=== PATIENT | female | born 1985 | race American Indian/Alaskan Native ===

== ENCOUNTER 2018-09-27 17:07 | Emergency (ER) | payer MEDICAID, OTHER ==
[2018-09-27 17:19] VITALS: BP 102/64; PULSE 86; RESP 16; TEMP 98; O2SAT 100
--- NOTE | 2018-09-27 18:38 | RAD ---
Date of service: 09/27/2018 PROCEDURE: Radiographs of the Lumbar Spine. Three views. HISTORY: pain COMPARISON: None available. FINDINGS: BONES: Alignment appears satisfactory. No listhesis. No acute displaced fracture identified. DISC SPACES: Unremarkable. OTHER FINDINGS: None. IMPRESSION: No acute displaced fracture or subluxation identified.
--- NOTE | 2018-09-27 18:41 | C.PDOC ---
History Of Present Illness 33 y/o female presents to the ER complaining of low back pain and left knee pain which has been present for the past 2 days. 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 She is lifting and bending and she has to stand on her feet for long periods of time. She states that she did not have time to seek medical attention until now. Denies having neurological deficits, urinary retention, and bowel/bladder incontinence. Time Seen by Provider: 09/27/18 17:27 Chief Complaint (Nursing): Lower Extremity Problem/Injury History Per: Patient History/Exam Limitations: no limitations Onset/Duration Of Symptoms: Days Current Symptoms Are (Timing): Still Present Severity: Moderate Past Medical History Reviewed: Historical Data, Nursing Documentation, Vital Signs Vital Signs: Last Vital Signs Temp 98 F 09/27/18 17:16 Pulse 86 09/27/18 17:16 Resp 16 09/27/18 17:16 BP 102/64 09/27/18 17:16 Pulse Ox 100 09/27/18 17:16 - Medical History PMH: Anxiety, Sexually Transmitted Disease (HERPES) Denies: Chronic Kidney Disease Other Surgeries: Hx of surgeries Family History: States: No Known Family Hx - Social History Hx Alcohol Use: No Hx Substance Use: No - Immunization History Hx Influenza Vaccination: No Review Of Systems Except As Marked, All Systems Reviewed And Found Negative. Genitourinary: Negative for: Dysuria, Frequency, Hematuria Musculoskeletal: Positive for: Back Pain, Other (left knee pain) Physical Exam - Physical Exam Appears: Non-toxic, No Acute Distress Skin: Normal Color, Warm, Dry, Other (no erythema and no warmth to left knee) Head: Atraumatic, Normacephalic Eye(s): bilateral: Normal Inspection Nose: Normal Oral Mucosa: Moist Neck: Supple Chest: Symmetrical Back: No Vertebral Tenderness Extremity: Normal ROM, Tenderness (mild tenderness in medial aspect of left knee), No Swelling Neurological/Psych: Oriented x3, Normal Speech, Normal Motor, Normal Sensation ED Course And Treatment Interpretation Of ECG: [id number] Spine and X-Ray-Left Knee ordered. O2 Sat by Pulse Oximetry: 100 (RA) Pulse Ox Interpretation: Normal - Other Rad X-Ray-Knee X-Ray: Viewed By Me, Read By Radiologist Interpretation: PROCEDURE: Left Knee Radiographs. Three views. HISTORY: pain. COMPARISON: None available. FINDINGS: Mildly rotated lateral view. BONES: No acute displaced fracture. JOINTS: No dislocation. JOINT EFFUSION: Probable small suprapatellar joint effusion. OTHER FINDINGS: None. IMPRESSION: Probable small suprapatellar joint effusion. No acute displaced fracture or dislocation identified. If symptoms persist, or if there is continued clinical concern, x-ray follow-up in 7-10 days should be considered. D-Clr-Betefy Spine X-Ray: Viewed By Me, Read By Radiologist Interpretation: Date of service: 09/27/2018. PROCEDURE: Radiographs of the Lumbar Spine. Three views. HISTORY: pain. COMPARISON: None available. FINDINGS: BONES: Alignment appears satisfactory. No listhesis. No acute displaced fracture identified. DISC SPACES: Unremarkable. OTHER FINDINGS: None. IMPRESSION: No acute displaced fracture or subluxation identified. Progress Note: Knee brace was appkied by CP. Patient was d/c home with PMD/ortho follow up. Disposition - Disposition Referrals: David Plascencia MD [Staff Provider] - Disposition: HOME/ ROUTINE Disposition Time: 18:39 Condition: STABLE Additional Instructions: Follow up with PMD and Orthopedist within 1-2 days. Return to ED if feel worse. Prescriptions: Cyclobenzaprine [Cyclobenzaprine HCl] 10 mg PO TID #15 tab Lidocaine 5% [Lidoderm] 1 patch TP DAILY #30 patch Ibuprofen [Motrin Tab] 400 mg PO Q8 #30 tab Instructions: Low Back Pain in Adults, Knee Pain Forms: [facility] (Indonesian), Work Excuse - Clinical Impression Clinical Impression: Knee pain, Low back pain - PA / WET TRIMMER / Resident Statement MD/DO has reviewed & agrees with the documentation as recorded. - Scribe Statement The provider has reviewed the documentation as recorded by the Ariella Lowe Provider Attestation All medical record entries made by the Marquezibanup were at my direction and personally dictated by me. I have reviewed the chart and agree that the record accurately reflects my personal performance of the history, physical exam, medical decision making, and the department course for this patient. I have also personally directed, reviewed, and agree with the discharge instructions and disposition.
== END 2018-09-27 19:01 | disposition home or self-care (01) ==
LOC: C.ER 17:07
DX: M25.562 Pain in left knee (principal); M54.5 Low back pain

== ENCOUNTER 2018-10-19 17:06 | Observation (INO) | payer OTHER ==
[2018-10-19] MEDS ORDERED: Sodium Chloride 0.9% 1,000 ML IV ONE (19:14)
[2018-10-19 19:16] LABS: MEAN PLATELET VOLUME 7.7 fL (7.2-11.7)
[2018-10-19 19:23] LABS: INR 1.1; PARTIAL THROMBOPLASTIN TIME 34.2 SECONDS (21-34); PROTHROMBIN TIME 12.3 SECONDS (9.7-12.2)
[2018-10-19] MEDS ORDERED: Sodium Chloride 0.9% 1,000 ML ONE (19:24)
[2018-10-19 19:31] LABS: ALB/GLOB RATIO 1.2 (1.0-2.1); ALBUMIN 4.2 g/dL (3.5-5.0); ALT/SGPT 36 U/L (9-52); AST/SGOT 36 U/L (14-36); BLOOD UREA NITROGEN 9 mg/dL (7-17); CALCIUM 9.3 mg/dl (8.6-10.4); GFR NON-AFRICAN AMERICAN > 60
[2018-10-19 19:52] LABS: HEMOGLOBIN 7.2 g/dL (11.0-16.0); MEAN CELL VOLUME 64.2 fL (81.0-99.0); MEAN CORPUSCULAR HEMOGLOBIN 18.2 pg (27.0-31.0); MEAN CORPUSCULAR HGB CONC 28.4 g/dL (33.0-37.0); PLATELET COUNT 638 K/uL (130-400); RBC 3.92 Mil/uL (3.80-5.20); RED CELL DISTRIBUTION WIDTH 23.5 % (11.5-14.5)
[2018-10-19 19:59] LABS: HCG,QUALITATIVE URINE NEGATIVE (NEGATIVE)
--- NOTE | 2018-10-19 20:00 | C.PDOC ---
History Of Present Illness 33 year old female saw her OXIDATION OPERATOR Dr. Tiffany Billings a few days ago for progressively worsening dizziness and fatigue. She had blood work done patient at [facility] and today received a call to come in for a transfusion because her hemoglobin was very low. Patient has Hx of heavy periods, she states they last 6 days, first 3 days are usually very heavy but she has never been evaluated for this in the past and has never been transfused. Denies other symptoms, abdominal pain, chest pain, or SOB. Time Seen by Provider: 10/19/18 19:08 Chief Complaint (Nursing): Medical Clearance History Per: Patient History/Exam Limitations: no limitations Onset/Duration Of Symptoms: Days Current Symptoms Are (Timing): Still Present Recent travel outside of the [place]: No Past Medical History Reviewed: Historical Data, Nursing Documentation, Vital Signs Vital Signs: Last Vital Signs Temp 98.8 F 10/19/18 17:10 Pulse 76 10/19/18 17:10 Resp 18 10/19/18 17:10 BP 97/59 L 10/19/18 17:10 Pulse Ox 100 10/19/18 17:10 Primary Care Provider: Tiffany Billings - Medical History PMH: Anxiety, Sexually Transmitted Disease (HERPES) Denies: Chronic Kidney Disease Family History: States: Unknown Family Hx - Social History Hx Alcohol Use: No Hx Substance Use: No - Immunization History Hx Tetanus Toxoid Vaccination: No Hx Influenza Vaccination: No Hx Pneumococcal Vaccination: No Review Of Systems Constitutional: Positive for: Other (Fatigue). Negative for: Fever, Chills Cardiovascular: Negative for: Chest Pain, Palpitations Respiratory: Negative for: Cough, Shortness of Breath Gastrointestinal: Negative for: Nausea, Vomiting Neurological: Positive for: Dizziness. Negative for: Weakness, Numbness Physical Exam - Physical Exam Appears: Non-toxic Skin: Normal Color, Warm Head: Atraumatic, Normacephalic Eye(s): bilateral: Normal Inspection, PERRL, EOMI Oral Mucosa: Moist Neck: Normal, Supple Chest: Symmetrical, No Tenderness Cardiovascular: Rhythm Regular Respiratory: Normal Breath Sounds, No Rales, No Rhonchi, No Wheezing Gastrointestinal/Abdominal: Soft, No Tenderness Neurological/Psych: Oriented x3, Normal Speech ED Course And Treatment - Laboratory Results Result Diagrams: 10/19/18 19:12 10/19/18 19:12 Lab Results: PT 12.3 SECONDS (9.7-12.2) H 10/19/18 19:12 INR 1.1 10/19/18 19:12 APTT 34.2 SECONDS (21-34) H 10/19/18 19:12 Lab Interpretation: Abnormal (Hgb 7.2 Hct 25.2, plt 638, glucose 60) O2 Sat by Pulse Oximetry: 100 (Room air) Pulse Ox Interpretation: Normal Progress Note: Blood work and UA ordered. IV fluids administered. Orthostatic vitals unremarkable. - Physician Consult Information Time Consulting Physician Contacted: 20:28 Physician Contacted: Jayden Bailey Outcome Of Conversation: Patient to be admitted for transfusion. Disposition - Disposition Disposition: HOSPITALIZED Disposition Time: 20:30 Condition: STABLE - POA Present On Arrival: None - Clinical Impression Clinical Impression: Symptomatic anemia - Scribe Statement The provider has reviewed the documentation as recorded by the Scribe Jeet Mckeon All medical record entries made by the Scribe were at my direction and personally dictated by me. I have reviewed the chart and agree that the record accurately reflects my personal performance of the history, physical exam, medical decision making, and the department course for this patient. I have also personally directed, reviewed, and agree with the discharge instructions and disposition.
[2018-10-19 20:02] LABS: SQUAMOUS EPITHIAL 2 /hpf (0-5); URINE BACTERIA RARE (<OCC); URINE BILIRUBIN NEGATIVE (NEGATIVE); URINE BLOOD NEGATIVE (NEGATIVE); URINE CLARITY Clear (Clear); URINE COLOR Yellow (YELLOW); URINE GLUCOSE (UA) NORMAL (Normal); URINE LEUKOCYTE ESTERASE NEG Leu/uL (Negative); URINE PROTEIN NEGATIVE (NEGATIVE); URINE UROBILINOGEN NORMAL mg/dL (0.2-1.0)
--- NOTE | 2018-10-19 20:37 | CP.PCM.HP ---
History of Present Illness - History of Present Illness History of Present Illness: 33 year old female saw her C JAVA DEVELOPER Dr. Tiffany Billings a few days ago for progressively worsening dizziness and fatigue. She had blood work done patient at [facility] and today received a call to come in for a transfusion because her hemoglobin was very low. Patient has Hx of heavy periods, she states they last 6 days, first 3 days are usually very heavy but she has never been evaluated for this in the past and has never been transfused. Present on Admission - Present on Admission Any Indicators Present on Admission: No Review of Systems - Constitutional Constitutional: Anorexia, Lethargy, Malaise Past Patient History - Past Social History Smoking Status: Never Smoked - CARDIAC Hx Cardiac Disorders: No - PULMONARY Hx Respiratory Disorders: No - NEUROLOGICAL Hx Neurological Disorder: No - HEENT Hx HEENT Problems: Yes Other/Comment: ORAL HERPES - RENAL Hx Chronic Kidney Disease: No - ENDOCRINE/METABOLIC Hx Endocrine Disorders: No - HEMATOLOGICAL/ONCOLOGICAL Hx Blood Disorders: No - INTEGUMENTARY Hx Dermatological Problems: No - MUSCULOSKELETAL/RHEUMATOLOGICAL Hx Musculoskeletal Disorders: No - GASTROINTESTINAL Hx Gastrointestinal Disorders: Yes Hx Hemorrhoids: Yes - GENITOURINARY/GYNECOLOGICAL Hx Sexually Transmitted Disorders: Yes (HERPES) - PSYCHIATRIC Hx Anxiety: Yes Hx Substance Use: No - SURGICAL HISTORY Hx Surgeries: Yes Other/Comment: HEMMORHOIDECTOMY 2004 - ANESTHESIA Hx Anesthesia: Yes Hx Anesthesia Reactions: No Meds Allergies/Adverse Reactions: Allergies Allergy/AdvReac Type Severity Reaction Status Date / Time Penicillins Allergy RASH Verified 10/19/18 17:14 Physical Exam - Eye Exam Eye Exam: Normal appearance - ENT Exam ENT Exam: Mucous Membranes Moist, Normal Exam - Neck Exam Neck exam: Positive for: Normal Inspection - Cardiovascular Exam Cardiovascular Exam: REGULAR RHYTHM - GI/Abdominal Exam GI & Abdominal Exam: Normal Bowel Sounds, Soft. absent: Tenderness - Rectal Exam Rectal Exam: Deferred, NORMAL INSPECTION - Extremities Exam Extremities exam: Positive for: normal inspection - Back Exam Back exam: NORMAL INSPECTION - Neurological Exam Neurological exam: Alert, CN II-XII Intact, Normal Gait, Oriented x3, Reflexes Normal Results - Vital Signs Recent Vital Signs: Last Vital Signs Temp 98.8 F 10/19/18 20:09 Pulse 70 10/19/18 20:09 Resp 14 10/19/18 20:09 BP 94/59 L 10/19/18 20:09 Pulse Ox 100 05/21/19 20:30 - Labs Result Diagrams: 10/19/18 19:12 10/19/18 19:12 Labs: Laboratory Results - last 24 hr 10/19/18 10/19/18 10/19/18 19:12 19:12 19:12 WBC 5.0 RBC 3.92 Hgb 7.2 L Hct 25.2 L MCV 64.2 L MCH 18.2 L MCHC 28.4 L RDW 23.5 H Plt Count 638 H MPV 7.7 PT 12.3 H INR 1.1 APTT 34.2 H Sodium 138 Potassium 3.5 L Chloride 102 Carbon Dioxide 27 Anion Gap 13 BUN 9 Creatinine 0.9 Est GFR ( Amer) > 60 Est GFR (Non-Af Amer) > 60 Random Glucose 60 L Calcium 9.3 Total Bilirubin 0.6 AST 36 ALT 36 Alkaline Phosphatase 44 Total Protein 7.5 Albumin 4.2 Globulin 3.4 Albumin/Globulin Ratio 1.2 Urine Color Urine Clarity Urine pH Ur Specific [place] Urine Protein Urine Glucose (UA) Urine Ketones Urine Blood Urine Nitrate Urine Bilirubin Urine Urobilinogen Ur Leukocyte Esterase Urine WBC (Auto) Ur Squamous Epith Cells Urine Bacteria Urine HCG, Qual 10/19/18 19:49 WBC RBC Hgb Hct MCV MCH MCHC RDW Plt Count MPV PT INR APTT Sodium Potassium Chloride Carbon Dioxide Anion Gap BUN Creatinine Est GFR ( Amer) Est GFR (Non-Af Amer) Random Glucose Calcium Total Bilirubin AST ALT Alkaline Phosphatase Total Protein Albumin Globulin Albumin/Globulin Ratio Urine Color Yellow Urine Clarity Clear Urine pH 6.0 Ur Specific [place] 1.014 Urine Protein Negative Urine Glucose (UA) Normal Urine Ketones Negative Urine Blood Negative Urine Nitrate Negative Urine Bilirubin Negative Urine Urobilinogen Normal Ur Leukocyte Esterase Neg Urine WBC (Auto) < 1 Ur Squamous Epith Cells 2 Urine Bacteria Rare Urine HCG, Qual Negative Assessment & Plan (1) Iron deficiency anemia due to chronic blood loss Status: Acute Comment: transfuse 3 pc (2) Symptomatic anemia Status: Acute
[2018-10-19 21:24] LABS: LYMPH % 2.4 % (20.0-40.0); NEUT % 2.5 % (50.0-75.0)
[2018-10-19 21:25] LABS: MONO % 0.2 % (0.0-10.0)
[2018-10-19 21:28] LABS: LYMPHOCYTE 46 % (20-40); MONOCYTE 6 % (0-10); NEUTROPHIL 48 % (50-75); TOTAL CELLS COUNTED 100
[2018-10-19 21:30] LABS: PLATELET ESTIMATE SLIGHTLY INCREASED (NORMAL)
[2018-10-19 21:31] LABS: HYPOCHROMIC MODERATE
[2018-10-19 21:31] LABS: IRON 18 ug/dL (37-170)
[2018-10-19 21:34] LABS: TEARDROP CELLS SLIGHT
[2018-10-19 21:35] LABS: SCHISTOCYTES SLIGHT
[2018-10-19 21:36] LABS: TARGET CELLS SLIGHT
[2018-10-19 21:38] LABS: ANISOCYTOSIS SLIGHT
[2018-10-19 21:40] LABS: % IRON SATURATION 4 (20-55); TOTAL IRON BINDING CAPACITY 434 ug/dL (250-450)
[2018-10-20 00:51] VITALS: RESP 20
--- NOTE | 2018-10-20 10:58 | CP.PCM.PN ---
Subjective - Date & Time of Evaluation Date of Evaluation: 10/20/18 Time of Evaluation: 10:57 - Subjective Subjective: RECEIVED 2 UNITS OF PC FATIGUE VS STABLE CHECK H/H Objective - Vital Signs/Intake and Output Vital Signs (last 24 hours): Temp Pulse Resp BP Pulse Ox 97.8 F 61 20 99/63 L 96 10/20/18 07:00 10/20/18 07:00 10/20/18 07:00 10/20/18 07:00 10/20/18 07:00 Intake and Output: 10/19/18 10/20/18 23:59 11:59 Intake Total 1536 Balance 1536 - Medications Medications: Current Medications Pneumococcal Polyvalent Vaccine (Pneumovax 23 Vaccine) 0.5 ml IM .ONCE ONE Stop: 10/22/18 10:01 - Labs Labs: 10/19/18 19:12 10/19/18 19:12 PT 12.3 SECONDS (9.7-12.2) H 10/19/18 19:12 INR 1.1 10/19/18 19:12 APTT 34.2 SECONDS (21-34) H 10/19/18 19:12 Assessment and Plan (1) Iron deficiency anemia due to chronic blood loss Status: Acute (2) Symptomatic anemia Status: Acute
[2018-10-20 11:56] LABS: MEAN CORPUSCULAR HEMOGLOBIN 21.5 pg (27.0-31.0); MEAN CORPUSCULAR HGB CONC 30.7 g/dL (33.0-37.0); MEAN PLATELET VOLUME 7.8 fL (7.2-11.7); RBC 4.32 Mil/uL (3.80-5.20); RED CELL DISTRIBUTION WIDTH 26.2 % (11.5-14.5); WHITE BLOOD COUNT 5.9 K/uL (4.8-10.8)
[2018-10-20 11:59] LABS: HEMOGLOBIN 9.3 g/dL (11.0-16.0); MEAN CELL VOLUME 69.9 fL (81.0-99.0)
[2018-10-20 12:05] LABS: BLOOD UREA NITROGEN 8 mg/dL (7-17); CALCIUM 8.8 mg/dl (8.6-10.4); GFR NON-AFRICAN AMERICAN > 60
[2018-10-20 13:04] LABS: EOS # 0.1 K/uL (0.0-0.7); LYMPH # 1.3 K/uL (1.0-4.3); MONO # 0.5 K/uL (0.0-0.8)
[2018-10-20 17:13] VITALS: BP 111/74; PULSE 72; TEMP 98; O2SAT 98
--- NOTE | 2018-10-21 11:47 | CP.PCM.DIS ---
Provider - Provider Date of Admission: 10/19/18 20:31 Attending physician: Jayden Bailey MD Time Spent in preparation of Discharge (in minutes): 30 Diagnosis - Discharge Diagnosis (1) Iron deficiency anemia due to chronic blood loss Status: Acute (2) Symptomatic anemia Status: Acute Hospital Course - Lab Results Lab Results: Most Recent Lab Values WBC 5.9 K/uL (4.8-10.8) 10/20/18 11:37 RBC 4.32 Mil/uL (3.80-5.20) 10/20/18 11:37 Hgb 9.3 g/dL (11.0-16.0) L D 10/20/18 11:37 Hct 30.2 % (34.0-47.0) L 10/20/18 11:37 MCV 69.9 fL (81.0-99.0) L D 10/20/18 11:37 MCH 21.5 pg (27.0-31.0) L 10/20/18 11:37 MCHC 30.7 g/dL (33.0-37.0) L 10/20/18 11:37 RDW 26.2 % (11.5-14.5) H 10/20/18 11:37 Plt Count 479 K/uL (130-400) H D 10/20/18 11:37 MPV 7.8 fL (7.2-11.7) 10/20/18 11:37 Neut % (Auto) 68.0 % (50.0-75.0) 10/20/18 11:37 Lymph % (Auto) 22.0 % (20.0-40.0) 10/20/18 11:37 [place] % (Auto) 8.0 % (0.0-10.0) 10/20/18 11:37 Eos % (Auto) 0.0 % (0.0-4.0) 10/20/18 11:37 Baso % (Auto) 2.0 % (0.0-2.0) 10/20/18 11:37 Neut # (Auto) 4.0 K/uL (1.8-7.0) 10/20/18 11:37 Lymph # (Auto) 1.3 K/uL (1.0-4.3) 10/20/18 11:37 [place] # (Auto) 0.5 K/uL (0.0-0.8) 10/20/18 11:37 Eos # (Auto) 0.1 K/uL (0.0-0.7) 10/20/18 11:37 Baso # (Auto) 0.0 K/uL (0.0-0.2) 10/20/18 11:37 Neutrophils % (Manual) 48 % (50-75) L 10/19/18 19:12 Lymphocytes % (Manual) 46 % (20-40) H 10/19/18 19:12 Monocytes % (Manual) 6 % (0-10) 10/19/18 19:12 Platelet Estimate Slightly increased (NORMAL) H 10/19/18 19:12 Hypochromasia (manual) Moderate 10/19/18 19:12 Anisocytosis (manual) Slight 10/19/18 19:12 Target Cells Slight 10/19/18 19:12 Tear Drop Cells Slight 10/19/18 19:12 Acanthocytes (Spur) Slight 10/19/18 19:12 Schistocytes Slight 10/19/18 19:12 PT 12.3 SECONDS (9.7-12.2) H 10/19/18 19:12 INR 1.1 10/19/18 19:12 APTT 34.2 SECONDS (21-34) H 10/19/18 19:12 Sodium 137 mmol/L (132-148) 10/20/18 11:37 Potassium 3.9 mmol/L (3.6-5.2) 10/20/18 11:37 Chloride 105 mmol/L (98-107) 10/20/18 11:37 Carbon Dioxide 25 mmol/L (22-30) 10/20/18 11:37 Anion Gap 11 (10-20) 10/20/18 11:37 BUN 8 mg/dL (7-17) 10/20/18 11:37 Creatinine 0.9 mg/dL (0.7-1.2) 10/20/18 11:37 Est GFR ( Amer) > 60 10/20/18 11:37 Est GFR (Non-Af Amer) > 60 10/20/18 11:37 Random Glucose 83 mg/dL (65-105) D 10/20/18 11:37 Calcium 8.8 mg/dl (8.6-10.4) 10/20/18 11:37 Iron 18 ug/dL (37-170) L 10/19/18 20:59 TIBC 434 ug/dL (250-450) 10/19/18 20:59 % Saturation 4 (20-55) L 10/19/18 20:59 Ferritin 2.8 ng/mL 10/19/18 20:48 Total Bilirubin 0.6 mg/dL (0.2-1.3) 10/19/18 19:12 AST 36 U/L (14-36) 10/19/18 19:12 ALT 36 U/L (9-52) 10/19/18 19:12 Alkaline Phosphatase 44 U/L (38-126) 10/19/18 19:12 Total Protein 7.5 g/dL (6.3-8.3) 10/19/18 19:12 Albumin 4.2 g/dL (3.5-5.0) 10/19/18 19:12 Globulin 3.4 gm/dL (2.2-3.9) 10/19/18 19:12 Albumin/Globulin Ratio 1.2 (1.0-2.1) 10/19/18 19:12 Urine Color Yellow (YELLOW) 10/19/18 19:49 Urine Clarity Clear (Clear) 10/19/18 19:49 Urine pH 6.0 (5.0-8.0) 10/19/18 19:49 Ur Specific [place] 1.014 (1.003-1.030) 10/19/18 19:49 Urine Protein Negative mg/dL (NEGATIVE) 10/19/18 19:49 Urine Glucose (UA) Normal mg/dL (Normal) 10/19/18 19:49 Urine Ketones Negative mg/dL (NEGATIVE) 10/19/18 19:49 Urine Blood Negative (NEGATIVE) 10/19/18 19:49 Urine Nitrate Negative (NEGATIVE) 10/19/18 19:49 Urine Bilirubin Negative (NEGATIVE) 10/19/18 19:49 Urine Urobilinogen Normal mg/dL (0.2-1.0) 10/19/18 19:49 Ur Leukocyte Esterase Neg [place]/uL (Negative) 10/19/18 19:49 Urine WBC (Auto) < 1 /hpf (0-5) 10/19/18 19:49 Ur Squamous Epith Cells 2 /hpf (0-5) 10/19/18 19:49 Urine Bacteria Rare (<OCC) 10/19/18 19:49 Urine HCG, Qual Negative (NEGATIVE) 10/19/18 19:49 Stool Occult Blood Negative (NEGATIVE) 10/20/18 17:09 Blood Type B POSITIVE 10/19/18 19:24 Blood Type Confirm B POSITIVE 10/19/18 19:24 Antibody Screen Negative 10/19/18 19:24 - Hospital Course Hospital Course: 33 year old female saw her ADMISSIONS ASSISTANT Dr. Tiffany Billings a few days ago for progressively worsening dizziness and fatigue. She had blood work done patient at [facility] and today received a call to come in for a transfusion because her hemoglobin was very low. Patient has Hx of heavy periods, she states they last 6 days, first 3 days are usually very heavy but she has never been evaluated for this in the past and has never been transfused. AFTER RECEIVING 3 UNITS PC H/H 9.3 NO ACTIVE VISIBLE BLEEDING PT SIGNED OUT AMA BEFORE IV IRON THERAPY ADV TO F/U ADMISSIONS ASSISTANT Discharge Plan - Follow Up Plan Condition: STABLE Disposition: AGAINST MEDICAL ADVICE
[2018-10-22] MEDS ORDERED: Pneumococcal 23-Valent Vaccine IM ONE (10:00)
== END 2018-10-20 22:00 | disposition left against medical advice (07) ==
LOC: C.ER 17:06 → C.9E 20:31 → C.3T 21:32
PROVIDERS: ADMIT Internal Medicine Cardiovascular Disease; ATTEND Internal Medicine Cardiovascular Disease
DX: D50.0 Iron deficiency anemia secondary to blood loss (chronic) (principal)
CPT/HCPCS: 36415; 36430; 80048; 80053; 81001; 82728; 83540; 83550; 84703; 85025; 85610; 85730; 86850; 86900; 86920; 96360; 99285; G0328; G0378; J7030; P9051